=== PATIENT | female | born 1945 | race American Indian/Alaskan Native ===

== ENCOUNTER 2022-06-05 02:41 | Emergency (ER) | payer MEDICARE ==
[2022-06-05 04:36] VITALS: BP 137/76
--- NOTE | 2022-06-05 04:48 | XRay Report ---
CHEST 1 VIEW INDICATION / CLINICAL INFORMATION: cough. COMPARISON: None available. FINDINGS: SUPPORT DEVICES: None. HEART / MEDIASTINUM: Heart size is within normal limits. Mediastinal contour demonstrates no signific ant abnormality. LUNGS / PLEURA: Lungs are clear for degree of inspiration and technique utilized. BONES: No significant osseous abnormality. ADDITIONAL FINDINGS: No significant additional findings. IMPRESSION: 1. No active cardiopulmonary disease. Signer Name: Shan Callahan II, MD Signed: 06/05/2022 4:43 AM Workstation Name: [id number]
--- NOTE | 2022-06-05 05:03 | Emergency Department Report ---
- General Chief Complaint: Upper Respiratory Infection Stated Complaint: FLU LIKE SYMPTOMS Source: patient Mode of arrival: Stretcher Limitations: No Limitations - History of Present Illness Initial Comments: Patient is a 77-year-old -[place] female with a history of cdy-gqzbhhm-epwfwrdul diabetes, hypertension, coronary artery disease s/p AR and PTCA stents, GERD, chronic osteoarthritis, asthma and COPD who presents to the ED with complaint of acute onset persistent nasal and sinus congestion, diffuse body aches and pains and persistent dry cough for the last 4 days. Patient states that the symptoms been persistent and that tonight she was unable to sleep because of persistent cough. Patient states that other family members have had similar symptoms. Patient states that she tested negative for COVID-19 viral infection at home. Patient denies fever, chills, and nausea and vomiting, diarrhea, dysuria, urinary frequency and urgency, chest pain or shortness of breath, sore throat, headache, neck pain or abdominal pain. MD Complaint: cough, rhinorrhea, nasal congestion, sinus pain -: Sudden, days(s) (4) Severity: moderate Severity scale (0 -10): 4 Quality: dull, aching Consistency: constant Improves With: nothing Worsens With: nothing Context: sick contacts Associated Symptoms: denies other symptoms, rhinorrhea, nasal congestion, cough. denies: fever, myalgias, diaphoresis, headache, sore throat, stiff neck, chest pain, shortness of breath, abdominal pain, nausea, vomiting, diarrhea, dysuria, rash, right sweats, weight loss, epistaxis, hoarseness, ear pain, other Treatments Prior to Arrival: none - Related Data Home Medications Medication Instructions Recorded Confirmed Last Taken Albuterol Sulfate [Ventolin HFA] 1 puff INHALATION PRN 01/03/14 02/10/16 02/09/16 Bismuth Subsalicylate [Pepto 1 tab PO DAILY 01/03/14 02/04/16 01/03/14 Bismol] Cholecalciferol (Vitamin D3) 1 cap PO DAILY 01/03/14 02/04/16 01/03/14 [Vitamin D3] Clonidine HCl 1 tab PO DAILY 01/03/14 02/10/16 02/09/16 Clopidogrel Bisulfate [Clopidogrel] 1 tab PO DAILY 01/03/14 02/10/16 02/02/16 FLUoxetine HCL [Fluoxetine HCl] 1 cap PO DAILY 01/03/14 02/10/16 02/09/16 Fluticasone/Salmeterol [Advair 1 inhalation INHALATION DAILY 01/03/14 02/10/16 02/09/16 Diskus 250-50 mcg] Simvastatin 1 tab PO DAILY 01/03/14 02/10/16 02/09/16 Tramadol HCl 1 tab PO PRN 01/03/14 02/10/16 02/09/16 Valsartan/Hydrochlorothiazide 1 tab PO DAILY 01/03/14 02/10/16 02/09/16 [Valsartan-Hctz 160-25 mg] glipiZIDE [Glipizide ER] 1 tab PO DAILY 01/03/14 02/10/16 02/09/16 raNITIdine HCL [Ranitidine 150mg 1 tab PO DAILY 01/03/14 02/10/16 02/09/16 Cap] Previous Rx's Medication Instructions Recorded Last Taken Type Azithromycin [Zithromax Z-SAM] 250 mg PO DAILY #6 tab 06/05/22 Unknown Rx Benzonatate [Tessalon Perles] 100 mg PO Q8HR #30 cap 06/05/22 Unknown Rx Cetirizine HCl [Zyrtec 10mg tab] 10 mg PO DAILY #30 tab 06/05/22 Unknown Rx predniSONE [Deltasone] 40 mg PO QDAY #10 tab 06/05/22 Unknown Rx Allergies Allergy/AdvReac Type Severity Reaction Status Date / Time aspirin AdvReac Swelling Verified 01/03/14 11:32 codeine AdvReac Swelling Verified 01/03/14 11:32 Sulfa (Sulfonamide AdvReac Swelling Verified 01/03/14 11:32 Antibiotics) ED Review of Systems ROS: Stated complaint: FLU LIKE SYMPTOMS Other details as noted in HPI Constitutional: denies: chills, fever Eyes: denies: eye pain, eye discharge, vision change ENT: congestion. denies: ear pain, throat pain Respiratory: cough. denies: shortness of breath, wheezing Cardiovascular: denies: chest pain, palpitations Endocrine: no symptoms reported Gastrointestinal: denies: abdominal pain, nausea, diarrhea Genitourinary: denies: urgency, dysuria, discharge Musculoskeletal: denies: back pain, joint swelling, arthralgia Skin: denies: rash, lesions Neurological: denies: headache, weakness, paresthesias Psychiatric: denies: anxiety, depression Hematological/Lymphatic: denies: easy bleeding, easy bruising ED Past Medical Hx - Past Medical History Hx Hypertension: Yes (1997) Hx Heart Attack/AMI: Yes (1994) Hx Diabetes: Yes Hx GERD: Yes Hx Arthritis: Yes Hx Asthma: Yes Hx COPD: Yes - Surgical History Past Surgical History?: Yes Hx Breast Surgery: Yes (RIGHT BREAST MASS REMOVED) - Social History Smoking Status: Never Smoker Substance Use Type: None - Medications Home Medications: Home Medications Medication Instructions Recorded Confirmed Last Taken Type Albuterol Sulfate [Ventolin HFA] 1 puff INHALATION PRN 01/03/14 02/10/16 02/09/16 History Bismuth Subsalicylate [Pepto 1 tab PO DAILY 01/03/14 02/04/16 01/03/14 History Bismol] Cholecalciferol (Vitamin D3) 1 cap PO DAILY 01/03/14 02/04/16 01/03/14 History [Vitamin D3] Clonidine HCl 1 tab PO DAILY 01/03/14 02/10/16 02/09/16 History Clopidogrel Bisulfate [Clopidogrel] 1 tab PO DAILY 01/03/14 02/10/16 02/02/16 History FLUoxetine HCL [Fluoxetine HCl] 1 cap PO DAILY 01/03/14 02/10/16 02/09/16 History Fluticasone/Salmeterol [Advair 1 inhalation INHALATION DAILY 01/03/14 02/10/16 02/09/16 History Diskus 250-50 mcg] Simvastatin 1 tab PO DAILY 01/03/14 02/10/16 02/09/16 History Tramadol HCl 1 tab PO PRN 01/03/14 02/10/16 02/09/16 History Valsartan/Hydrochlorothiazide 1 tab PO DAILY 01/03/14 02/10/16 02/09/16 History [Valsartan-Hctz 160-25 mg] glipiZIDE [Glipizide ER] 1 tab PO DAILY 01/03/14 02/10/16 02/09/16 History raNITIdine HCL [Ranitidine 150mg 1 tab PO DAILY 01/03/14 02/10/16 02/09/16 History Cap] Azithromycin [Zithromax Z-SAM] 250 mg PO DAILY #6 tab 06/05/22 Unknown Rx Benzonatate [Tessalon Perles] 100 mg PO Q8HR #30 cap 06/05/22 Unknown Rx Cetirizine HCl [Zyrtec 10mg tab] 10 mg PO DAILY #30 tab 06/05/22 Unknown Rx predniSONE [Deltasone] 40 mg PO QDAY #10 tab 06/05/22 Unknown Rx ED Physical Exam - General Limitations: No Limitations General appearance: alert, in no apparent distress - Head Head exam: Present: atraumatic, normocephalic, normal inspection - Eye Eye exam: Present: normal appearance, PERRL, EOMI Pupils: Present: normal accommodation - ENT ENT exam: Present: mucous membranes moist, TM's normal bilaterally, normal external ear exam, other (Grossly congested nasal passages and) - Neck Neck exam: Present: normal inspection, full ROM - Respiratory Respiratory exam: Present: normal lung sounds bilaterally. Absent: respiratory distress, wheezes, rales, rhonchi, chest wall tenderness, accessory muscle use, prolonged expiratory - Cardiovascular Cardiovascular Exam: Present: regular rate, normal rhythm, normal heart sounds. Absent: systolic murmur, diastolic murmur, rubs, gallop - GI/Abdominal GI/Abdominal exam: Present: soft, normal bowel sounds. Absent: tenderness, guarding, rebound, hyperactive bowel sounds, bruit - Extremities Exam Extremities exam: Present: normal inspection, full ROM, normal capillary refill. Absent: tenderness - Back Exam Back exam: Present: normal inspection, full ROM. Absent: tenderness, CVA tenderness (R), CVA tenderness (L), muscle spasm, paraspinal tenderness, vertebral tenderness - Neurological Exam Neurological exam: Present: alert, oriented X3, CN II-XII intact, normal gait, reflexes normal - Psychiatric Psychiatric exam: Present: normal affect, normal mood - Skin Skin exam: Present: warm, dry, intact, normal color. Absent: rash ED Course Vital Signs 06/05/22 06/05/22 06/05/22 02:41 04:35 04:36 Temperature 98.5 F 98.8 F Pulse Rate 94 H 88 Respiratory 18 16 Rate Blood Pressure 132/82 Blood Pressure 137/76 [Left] O2 Sat by Pulse 97 96 96 Oximetry ED Medical Decision Making - Radiology Data Radiology results: report reviewed, image reviewed [address] [place] [address] XRay Report Signed Patient: GLADIS CLARK MR#: [id number] : 1945 Acct:[id number] Age/Sex: 77 / F ADM Date: 06/05/22 Loc: ED Attending Dr: Ordering Physician: TIFFANY VAUGHN Date of Service: 06/05/22 Procedure(s): XR chest 1V ap Accession Number(s): [id number] cc: TIFFANY VAUGHN Fluoro Time In Minutes: CHEST 1 VIEW INDICATION / CLINICAL INFORMATION: cough. COMPARISON: None available. FINDINGS: SUPPORT DEVICES: None. HEART / MEDIASTINUM: Heart size is within normal limits. Mediastinal contour demonstrates no significant abnormality. LUNGS / PLEURA: Lungs are clear for degree of inspiration and technique utilized. BONES: No significant osseous abnormality. ADDITIONAL FINDINGS: No significant additional findings. IMPRESSION: 1. No active cardiopulmonary disease. Signer Name: Johnny Parker II, MD Signed: 06/05/2022 4:43 AM Workstation Name: [id number] Transcribed By: LAURA Dictated By: JOHNNY PARKER II, MD Electronically Authenticated By: JOHNNY PARKER II, MD Signed Date/Time: 06/05/22442 DD/ 2 TD/TT: - Medical Decision Making This is a 77-year-old -[place] female with a history of mjz-yxrrrbj-vptmidzpa diabetes, hypertension, coronary artery disease s/p AR and PTCA stents, GERD, chronic osteoarthritis, asthma and COPD who presents to the ED with complaint of acute onset persistent nasal and sinus congestion, diffuse body aches and pains and persistent dry cough for the last 4 days. Patient states that the symptoms been persistent and that tonight she was unable to sleep because of persistent cough. Patient states that other family members have had similar symptoms. Patient states that she tested negative for COVID-19 viral infection at home. In the ED, patient is alert and oriented x3 and is not in any distress. Patient is hemodynamically stable. Chest x-ray shows no acute cardiopulmonary abnormalities or pneumonitis. Based on the history and physical exam findings and the imaging reports, patient symptoms are likely due to upper respiratory infection. Patient was therefore discharged home on medications and advised to follow-up with her primary care physician in 5 to 7 days for reevaluation or return to the ED immediately if symptoms get worse. - Differential Diagnosis URI; COVID-19; influenza; rhinitis; pneumonia; bronchitis Critical care attestation.: If time is entered above; I have spent that time in minutes in the direct care of this critically ill patient, excluding procedure time. ED Disposition Clinical Impression: Acute upper respiratory infection Acute bronchitis Qualifiers: Bronchitis organism: other organism Qualified Code(s): J20.8 - Acute bronchitis due to other specified organisms Disposition: HOME / SELF CARE / HOMELESS Is pt being admited?: No Does the pt Need Aspirin: No Condition: Stable Instructions: Acute Bronchitis (ED), Upper Respiratory Infection, Adult, [id number], Cough, Adult, [id number], Acute Bronchitis, Adult, [id number] Additional Instructions: Chest x-ray showed no acute cardiopulmonary abnormalities or pneumonitis. Your symptoms are likely due to upper respiratory infection, therefore take medication as advised, drink plenty of fluids and follow-up with your primary care physician in 7 to 10 days for reevaluation. Return to the ED immediately if symptoms get worse. Prescriptions: predniSONE [Deltasone] 40 mg PO QDAY #10 tab Benzonatate [Tessalon Perles] 100 mg PO Q8HR #30 cap Azithromycin [Zithromax Z-SAM] 250 mg PO DAILY #6 tab Cetirizine HCl [Zyrtec 10mg tab] 10 mg PO DAILY #30 tab Referrals: [facility] [Provider Group] - 7-10 days Time of Disposition: 05:05 Print Language: BENGALI
== END 2022-06-05 06:11 | disposition home or self-care (01) ==
LOC: ED 02:41
DX: J06.9 Acute upper respiratory infection, unspecified (principal); J20.9 Acute bronchitis, unspecified; I10 Essential (primary) hypertension; E11.9 Type 2 diabetes mellitus without complications; M19.90 Unspecified osteoarthritis, unspecified site; J45.909 Unspecified asthma, uncomplicated; Z98.890 Other specified postprocedural states; Z88.2 Allergy status to sulfonamides; Z88.5 Allergy status to narcotic agent; Z88.6 Allergy status to analgesic agent
CPT/HCPCS: 71045; 99283